=== PATIENT | female | born 1945 | race Caucasian/White ===

== ENCOUNTER 2020-02-18 20:10 | Emergency (ER) | payer MEDICARE, BC ==
--- NOTE | 2020-02-18 20:31 | EDM.PDOC ---
ED HPI GENERAL MEDICAL PROBLEM - General Chief Complaint: Upper Extremity Injury/Pain Stated Complaint: FALL-ARM PAIN Time Seen by Provider: 02/18/20 20:15 Source of Information: Reports: Patient, Family History Limitations: Reports: No Limitations - History of Present Illness INITIAL COMMENTS - FREE TEXT/NARRATIVE: pt states she slipped on ice and fell landing on her right side and on the right side of her back has pain in the mid upper arm, elbow and numbness in the forearm states she has a history of prior unrepaired fracture of the right femur no head injury , no LOC though she hit her head on the ground ( back of the head and right side of back) Onset: Today Onset Date: 02/18/20 Duration: Minutes: (30), Getting Worse Location: Reports: Upper Extremity, Right (tenderness in the mid arm) Quality: Reports: Ache, Dull Severity: Moderate Improves with: Reports: None Worsens with: Reports: Movement Right Upper Arm Pain Score (Numeric/FACES): 8 - Related Data Allergies Allergy/AdvReac Type Severity Reaction Status Date / Time propoxyphene [From Darvon] Allergy Other Verified 02/18/20 20:23 Sulfa (Sulfonamide Allergy Other Verified 02/18/20 20:23 Antibiotics) Home Meds: Home Meds Aspirin [Ecotrin EC] 81 mg PO DAILY 02/18/20 [History] Hydrocodone/Acetaminophen [Hydrocodon-Acetaminophen 5-325] 1 each PO Q12HR PRN #10 tablet 02/18/20 [Rx] Ketorolac [Toradol] 10 mg PO Q6H PRN #20 tab 02/18/20 [Rx] Levothyroxine 75 mcg PO DAILY 02/18/20 [History] Losartan [Cozaar] 100 mg PO DAILY 02/18/20 [History] Review of Systems - Review of Systems Review Of Systems: See Below Constitutional: Reports: No Symptoms Eyes: Reports: No Symptoms Ears: Reports: No Symptoms Nose: Reports: No Symptoms Mouth/Throat: Reports: No Symptoms Respiratory: Reports: No Symptoms Genitourinary: Reports: No Symptoms Musculoskeletal: Reports: Shoulder Pain, Arm Pain, Hand Pain, Muscle Pain, Muscle Stiffness Skin: Reports: No Symptoms Neurological: Reports: No Symptoms ED EXAM, GENERAL - Physical Exam Exam: See Below Exam Limited By: Physical Impairment (pt is in pain) General Appearance: Alert, WD/WN Nose: Normal Inspection Throat/Mouth: Normal Oropharynx Head: Atraumatic, Normocephalic Neck: Supple, Non-Tender Respiratory/Chest: Lungs Clear Cardiovascular: Regular Rate, Rhythm Peripheral Pulses: 2+: Radial (L), Radial (R) Extremities: Arm Pain (right arm pain , mid hsft of humerus , may be fractured), Limited Range of Motion Neurological: Alert, Oriented, CN II-XII Intact, Normal Cognition Psychiatric: Normal Affect Course - Vital Signs Last Recorded V/S: Last Vital Signs Temp 36.6 C 02/18/20 20:27 Pulse 72 02/18/20 20:27 Resp 18 02/18/20 20:27 BP 177/83 H 02/18/20 20:27 Pulse Ox 99 02/18/20 20:27 - Orders/Labs/Meds Orders: Active Orders 24 hr Category Date Time Status Humerus Rt [CR] Stat Exams 02/18/20 20:24 Taken Shoulder Comp Rt [CR] Stat Exams 02/18/20 20:25 Taken Meds: Medications Discontinued Medications Generic Name Dose Route Start Last Admin Trade Name Freq PRN Reason Stop Dose Admin Morphine Sulfate 2 mg 02/18/20 20:29 02/18/20 20:43 Morphine IM 02/18/20 20:30 2 mg ONETIME ONE Administration - Re-Assessments/Exams Free Text/Narrative Re-Assessment/Exam: 02/18/20 21:24 Xray reviewed : pt has transverse fracture of the right humerus with displacement Pt placedin shoulder immobilizer and feels more comfortable has sensation inthe fingers and hand is pink Several attempts made to contact [facility] nsuccesful , also attempts made to contact Ortho in [facility] Orth clinic and not successful pt will call same clinic in am and make appointment to be seen by the medical center orthopedic surgeon that she had seen Departure - Departure Time of Disposition: 22:00 Disposition: Home, Self-Care 01 Condition: Fair Clinical Impression: Fracture, humerus closed, shaft - Discharge Information *PRESCRIPTION DRUG MONITORING PROGRAM REVIEWED*: Not Applicable *COPY OF PRESCRIPTION DRUG MONITORING REPORT IN PATIENT KAYCE: Not Applicable Prescriptions: Hydrocodone/Acetaminophen [Hydrocodon-Acetaminophen 5-325] 1 each PO Q12HR PRN #10 tablet PRN Reason: Pain (Severe 7-10) Ketorolac [Toradol] 10 mg PO Q6H PRN #20 tab PRN Reason: Pain (Moderate 4-6) Instructions: Humerus Fracture Treated With Immobilization, [id number], Intramedullary Nailing of Humeral Shaft Fracture, Care After Referrals: Richy Goldstein MD [Primary Care Provider] - Forms: ED Department Discharge Additional Instructions: 1) Referral to Orthopedic surgeon Call in am [phone] Berger ( Orthopedic surgeon) 2) attempts made to contact cathodic protection technician not successful Pt will call ortho in am to make appointment to be seen Sepsis Event Note (ED) - Focused Exam Vital Signs: Vital Signs Temp Pulse Resp BP Pulse Ox 02/18/20 20:27 36.6 C 72 18 177/83 H 99 - My Orders Last 24 Hours: My Active Orders 02/18/20 20:24 Humerus Rt [CR] Stat 02/18/20 20:25 Shoulder Comp Rt [CR] Stat - Assessment/Plan Last 24 Hours: My Active Orders 02/18/20 20:24 Humerus Rt [CR] Stat 02/18/20 20:25 Shoulder Comp Rt [CR] Stat
[2020-02-18] MEDS: Morphine 2 MG/ML SYRINGE IM ONE (20:43)
--- NOTE | 2020-02-19 10:33 | CR ---
INDICATION: Fall, numbness in fingers. RIGHT SHOULDER: Three views of the right shoulder were obtained 02/18/20 and compared with 12/18/09. 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 An acute fracture or dislocation was not identified. Bone density appeared to be grossly normal. IMPRESSION: 1. Minimal osteoarthritis glenohumeral joint. 2. No acute fracture or dislocation. MTDD
--- NOTE | 2020-02-19 10:37 | CR ---
INDICATION: Fall - numbness in fingers. RIGHT HUMERUS: Frontal and somewhat lateral views of the right humerus were obtained 02/18/20 and revealed a slightly oblique to transverse fracture near the midshaft of the humerus through an area of previous healed fracture site with offset and separation of the fracture fragments noted (11 mm separation of fracture fragments, anterior offset of distal fracture fragment 18 mm, with slight anterior angulation of the distal fracture fragment at the fracture site) No other acute bone or joint abnormality was identified. IMPRESSION: Right humeral shaft fracture through an old fracture site that has healed with deformity. BRIDGET
== END 2020-02-18 22:10 | disposition home or self-care (01) ==
LOC: FB.ED 20:10
DX: S42.301A Unspecified fracture of shaft of humerus, right arm, initial encounter for closed fracture (principal); Z79.82 Long term (current) use of aspirin; Z79.899 Other long term (current) drug therapy; Z88.2 Allergy status to sulfonamides; W00.0XXA Fall on same level due to ice and snow, initial encounter
CPT/HCPCS: 73030-RT; 73060-RT; 96372; 99284-25; J2270

== ENCOUNTER 2020-04-28 09:49 | Inpatient (IN) | payer MEDICARE, BC ==
[2020-04-28] MEDS ORDERED: [UNRECOGNIZED DRUG - OTHER] PO SCH (15:45)
[2020-04-28] MEDS ORDERED: MULTIVITAMIN PO SCH (15:45)
[2020-04-28] MEDS ORDERED: Acetaminophen 500 MG Tab PO ONE (16:00)
--- NOTE | 2020-04-28 19:13 | PCM.HP.2 ---
H&P History of Present Illness - General Date of Service: 04/28/20 Admit Problem/Dx: Admission Diagnosis/Problem Admission Diagnosis/Problem Rehabilitation therapy Source of Information: Patient, Old Records History Limitations: Reports: No Limitations - History of Present Illness Initial Comments - Free Text/Narative: Patient suffered a fall while shoveling snow at the end of January 2020 and fractured her right humerus. She had poor healing and subsequently underwent iliac graft. Patient is transferred here to swing bed for physical and rehabilitative therapy. Onset of Symptoms: Reports: Gradual Duration of Symptoms: Reports: Week(s): Location: Reports: Upper Extremity, Right, Lower Extremity, Right Quality: Reports: Ache Severity: Mild Improves with: Reports: Medication Worsens with: Reports: Movement Associated Symptoms: Reports: No Other Symptoms Right Arm Pain Score (Numeric/FACES): 1 - Related Data Allergies/Adverse Reactions: Allergies Allergy/AdvReac Type Severity Reaction Status Date / Time propoxyphene [From Darvon] Allergy Other Verified 02/18/20 20:23 Sulfa (Sulfonamide Allergy Other Verified 02/18/20 20:23 Antibiotics) Home Medications: Home Meds Aspirin [Ecotrin EC] 81 mg PO DAILY 02/18/20 [History] Levothyroxine 75 mcg PO DAILY 02/18/20 [History] Losartan [Cozaar] 100 mg PO DAILY 02/18/20 [History] Acetaminophen [Tylenol Extra Strength] 1,000 mg PO Q8H 04/28/20 [History] Enoxaparin [Lovenox] 40 mg SUBCUT DAILY 04/28/20 [History] Fexofenadine [Page] 180 mg PO DAILY PRN 04/28/20 [History] Multivitamin [Daily [place]] 1 tab PO WEEKLY 04/28/20 [History] Mv-Mn/Lutein/Zeax/Bilber/Hb277 [Macular Health Formula Capsule] 1 cap PO ASDIRECTED 04/28/20 [History] Sennosides/Docusate Sodium [Senna-S] 1 tab PO BID PRN 04/28/20 [History] oxyCODONE 5 mg PO Q4H PRN 04/28/20 [History] Past Medical History Cardiovascular History: Reports: Hypertension Musculoskeletal History: Reports: Fracture Other Musculoskeletal History: right humerus fracture; FELL DOWN 5 YRS AGO Endocrine/Metabolic History: Reports: Hypothyroidism Social & Family History - Family History Family Medical History: No Pertinent Family History - Tobacco Use Tobacco Use Status *Q: Never Tobacco User Second Hand Smoke Exposure: No - Caffeine Use Caffeine Use: Reports: Coffee - Recreational Drug Use Recreational Drug Use: No H&P Review of Systems - Review of Systems: Review Of Systems: See Below General: Reports: Weakness HEENT: Reports: No Symptoms Pulmonary: Reports: No Symptoms Cardiovascular: Reports: No Symptoms Gastrointestinal: Reports: No Symptoms Genitourinary: Reports: No Symptoms Musculoskeletal: Reports: Arm Pain, Leg Pain Skin: Reports: Wound Psychiatric: Reports: No Symptoms Neurological: Reports: No Symptoms Hematologic/Lymphatic: Reports: No Symptoms Immunologic: Reports: No Symptoms Exam - Exam Exam: See Below - Exam Quality Assessment: DVT Prophylaxis, Skin Breakdown General: Alert, Oriented, Cooperative HEENT: EOMI, Mucosa Moist & [place] Lungs: Clear to Auscultation Cardiovascular: Regular Rate, Regular Rhythm, Systolic Murmur GI/Abdominal Exam: Normal Bowel Sounds, Soft, Non-Tender Back Exam: Normal Inspection. No: CVA Tenderness (R), CVA Tenderness (L) Extremities: Pedal Edema Peripheral Pulses: 2+: Radial (L), Radial (R), Dorsalis Pedis (L), Dorsalis Pedis (R) Skin: Warm, Dry Neurological: Normal Speech Neuro Extensive - Mental Status: Alert, Oriented x3, Normal Mood/Affect, Normal Cognition, Memory Intact Psychiatric: Alert, Normal Affect, Normal Mood Sepsis Event Note - Evaluation Sepsis Screening Result: No Definite Risk - Problem List (1) Fracture, humerus closed, shaft SNOMED Code(s): 63430714 ICD Code: S42.309A - UNSP FRACTURE OF SHAFT OF HUMERUS, UNSP ARM, INIT Status: Acute Current Visit: No Problem List Initiated/Reviewed/Updated: Yes Orders Last 24hrs: Active Orders 24 hr Category Date Time Status Admission Status [Patient Status] [ADT] Routine ADT 04/28/20 15:37 Active Acetaminophen [TylenoL] Med 04/29/20 07:00 Ordered 650 mg PO Q4H Aspirin [Halfprin] Med 04/29/20 09:00 Active 81 mg PO DAILY Docusate Sodium/Sennosides [Senna Plus] Med 04/28/20 15:34 Active 1 tab PO BID PRN Enoxaparin [Lovenox] Med 04/29/20 09:00 Active 40 mg SUBCUT DAILY Fexofenadine [Page] Med 04/28/20 16:00 Active 180 mg PO DAILY PRN Levothyroxine Med 04/29/20 06:00 Active 75 mcg PO DAILY@0600 Losartan [Cozaar] Med 04/29/20 09:00 Active 100 mg PO DAILY Multivitamin [Daily [place]] Med 04/28/20 15:45 Pending 1 tab PO WEEKLY Mv-Mn/Lutein/Zeax/Bilber/Hb277 [Macular Health Formula Med 04/28/20 15:45 Pending Capsule] 1 cap PO ASDIRECTED Medication Orders Acetaminophen (Tylenol) 650 mg PO Q4H JAMARI Aspirin (Halfprin) 81 mg PO DAILY JAMARI Enoxaparin Sodium (Lovenox) 40 mg SUBCUT DAILY JAMARI Fexofenadine HCl (Page) 180 mg PO DAILY PRN PRN Reason: Allergies Levothyroxine Sodium (Levothyroxine) 75 mcg PO DAILY@0600 JAMARI Losartan Potassium (Cozaar) 100 mg PO DAILY JAMARI Non-Formulary Medication (Multivitamin [Daily [place]]) 1 tab PO WEEKLY JAMARI Non-Formulary Medication (Mv-Mn/Lutein/Zeax/Bilber/Hb277 [Macular Health Formula Capsule]) 1 cap PO ASDIRECTED JAMARI Senna/Docusate Sodium (Senna Plus) 1 tab PO BID PRN PRN Reason: Constipation Assessment/Plan Comment:: 74-year-old lady admitted to swing bed for OT/PT rehabilitation after bone graft to the right humerus to aid fracture healing. Treatment as above. Recommendations based on patient status and recommendations from OT/PT.
[2020-04-28] MEDS ORDERED: Ondansetron 4 MG Tab.DIS PO PRN (19:16)
[2020-04-28] MEDS ORDERED: Acetaminophen 500 MG Tab PO SCH (22:00)
[2020-04-28] MEDS: Acetaminophen 325 MG Tab PO SCH (23:56)
[2020-04-29] MEDS: Acetaminophen 325 MG Tab PO SCH ×5 (04:08→20:08)
[2020-04-29] MEDS: Levothyroxine 75 MCG Tab PO SCH (06:27)
[2020-04-29] MEDS ORDERED: Acetaminophen 325 MG Tab PO SCH (07:00)
[2020-04-29] MEDS: Enoxaparin 40 MG/0.4 ML Syringe SUBCUT SCH (08:52)
[2020-04-29] MEDS: Losartan 100 MG Tab PO SCH (08:52)
[2020-04-29] MEDS: Aspirin 81 MG Tab.EC PO SCH (08:52)
--- NOTE | 2020-04-29 10:40 | PCM.PN ---
- General Info Date of Service: 04/29/20 Admission Dx/Problem (Free Text): Admission Diagnosis/Problem Admission Diagnosis/Problem Rehabilitation therapy Subjective Update: I was called to the patient's room at approximately 1015 because the patient was experiencing chest pain. She described the chest pain as substernal at the inferior sternal border, radiating laterally in both directions. She did not have shortness of breath, diaphoresis, dizziness. She states that she has had this pain a couple of times since her surgery and is concerned. Functional Status: Reports: Pain Controlled, Tolerating Diet, Ambulating, Urinating - Review of Systems General: Reports: Weakness HEENT: Reports: No Symptoms Pulmonary: Reports: No Symptoms Cardiovascular: Reports: Chest Pain, Edema. Denies: Palpitations Gastrointestinal: Reports: Other (GERD) Genitourinary: Reports: No Symptoms Musculoskeletal: Reports: Arm Pain, Leg Pain Skin: Reports: No Symptoms Neurological: Reports: No Symptoms Psychiatric: Reports: No Symptoms - Patient Data Vitals - Most Recent: Last Vital Signs Temp Pulse Resp BP 129/63 04/29/20 08:52 Pulse Ox Med Orders - Current: Current Medications Acetaminophen (Acetaminophen 325 Mg Tab) 650 mg PO Q4H [facility] Last Admin: 04/29/20 10:17 Dose: 650 mg Documented by: Aspirin (Halfprin) 81 mg PO DAILY [facility] Last Admin: 04/29/20 08:52 Dose: 81 mg Documented by: Enoxaparin Sodium (Enoxaparin 40 Mg/0.4 Ml Syringe) 40 mg SUBCUT DAILY [facility] Stop: 05/08/20 09:01 Last Admin: 04/29/20 08:52 Dose: 40 mg Documented by: Fexofenadine HCl (Page) 180 mg PO DAILY PRN PRN Reason: Allergies Levothyroxine Sodium (Levothyroxine 75 Mcg Tab) 75 mcg PO DAILY@0600 [facility] Last Admin: 04/29/20 06:27 Dose: 75 mcg Documented by: Losartan Potassium (Cozaar) 100 mg PO DAILY [facility] Last Admin: 04/29/20 08:52 Dose: 100 mg Documented by: Ondansetron HCl (Zofran Odt) 4 mg PO Q4H PRN PRN Reason: Nausea/Vomiting Senna/Docusate Sodium (Senna Plus) 1 tab PO BID PRN PRN Reason: Constipation Discontinued Medications Acetaminophen (Tylenol Extra Strength) 1,000 mg PO Q8H JAMARI Acetaminophen (Tylenol Extra Strength) 1,000 mg PO ONETIME ONE Stop: 04/28/20 16:01 Last Admin: 04/28/20 16:26 Dose: 1,000 mg Documented by: Acetaminophen (Tylenol) 650 mg PO Q4H JAMARI Fexofenadine HCl (Page) 180 mg PO DAILY PRN PRN Reason: Allergies Non-Formulary Medication (Multivitamin [Daily [place]]) 1 tab PO WEEKLY JAMARI Non-Formulary Medication (Mv-Mn/Lutein/Zeax/Bilber/Hb277 [Macular Health Formula Capsule]) 1 cap PO ASDIRECTED JAMARI - Exam Quality Assessment: DVT Prophylaxis General: Alert, Oriented, Cooperative, No Acute Distress Lungs: Clear to Auscultation, Normal Respiratory Effort Cardiovascular: Regular Rate, Regular Rhythm, Murmurs, Other (Chest pain not reproduced with deep inspiration but reproduced with firm palpation over the distal sternum). No: Gallops, Rubs Extremities: Pedal Edema (Mild to 1+ edema right lower extremity status post right iliac bone graft) Peripheral Pulses: 2+: Radial (L), Radial (R) Skin: Warm, Dry Neurological: No New Focal Deficit Psy/Mental Status: Alert, Normal Affect, Normal Mood Sepsis Event Note - Evaluation Sepsis Screening Result: No Definite Risk - Focused Exam Vital Signs: Vital Signs BP 04/29/20 08:52 129/63 - Problem List & Annotations (1) Fracture, humerus closed, shaft SNOMED Code(s): 22873781 Code(s): S42.309A - UNSP FRACTURE OF SHAFT OF HUMERUS, UNSP ARM, INIT Status: Acute Current Visit: No - Problem List Review Problem List Initiated/Reviewed/Updated: Yes - My Orders Last 24 Hours: My Active Orders 04/28/20 15:34 Docusate Sodium/Sennosides [Senna Plus] 1 tab PO BID PRN 04/28/20 15:45 Admission Status [Patient Status] [ADT] Routine 04/28/20 16:00 Fexofenadine [Page] 180 mg PO DAILY PRN 04/28/20 19:13 OT Evaluation and Treatment [CONS] Routine PT Evaluation and Treatment [CONS] Routine 04/28/20 19:14 Dietary Supplements [RC] PRN 04/28/20 19:16 Ondansetron [Zofran ODT] 4 mg PO Q4H PRN 04/28/20 20:13 Code Status [Resuscitation Status] Routine 04/29/20 00:00 Acetaminophen [TylenoL] 650 mg PO Q4H 04/29/20 06:00 Levothyroxine 75 mcg PO DAILY@0600 04/29/20 09:00 Aspirin [Halfprin] 81 mg PO DAILY Enoxaparin [Lovenox] 40 mg SUBCUT DAILY Losartan [Cozaar] 100 mg PO DAILY 04/29/20 10:31 EKG Documentation Completion [RC] ASDIRECTED EKG 12 Lead [EK] Routine - Plan Plan:: 74-year-old lady admitted to swing bed for OT/PT rehabilitation after bone graft to the right humerus to aid fracture healing. Treatment as above. Recommendations based on patient status and recommendations from OT/PT. Patient states that her chest pain has subsided significantly, lasted approximately 10 to 15 minutes. We will get an EKG now. Any further recommendations based on patient's symptoms and EKG result.
[2020-04-30] MEDS: Acetaminophen 325 MG Tab PO SCH ×6 (00:48→20:22)
[2020-04-30] MEDS: Levothyroxine 75 MCG Tab PO SCH (05:00)
[2020-04-30] MEDS: Aspirin 81 MG Tab.EC PO SCH (08:21)
[2020-04-30] MEDS: Losartan 100 MG Tab PO SCH (08:21)
[2020-04-30] MEDS: Enoxaparin 40 MG/0.4 ML Syringe SUBCUT SCH (08:21)
[2020-05-01] MEDS: Acetaminophen 325 MG Tab PO SCH ×6 (00:37→20:38)
[2020-05-01] MEDS: Levothyroxine 75 MCG Tab PO SCH (04:59)
[2020-05-01] MEDS: Losartan 100 MG Tab PO SCH (09:38)
[2020-05-01] MEDS: Aspirin 81 MG Tab.EC PO SCH (09:39)
[2020-05-01] MEDS: Enoxaparin 40 MG/0.4 ML Syringe SUBCUT SCH (09:39)
[2020-05-02] MEDS: Acetaminophen 325 MG Tab PO SCH ×3 (00:40→09:29)
[2020-05-02] MEDS: Levothyroxine 75 MCG Tab PO SCH (04:59)
[2020-05-02] MEDS: Losartan 100 MG Tab PO SCH (09:29)
[2020-05-02] MEDS: Aspirin 81 MG Tab.EC PO SCH (09:29)
[2020-05-02] MEDS: Enoxaparin 40 MG/0.4 ML Syringe SUBCUT SCH (11:08)
--- NOTE | 2020-05-03 13:15 | PCM.DCSUM1 ---
Discharge Summary - Hospital Course HPI Initial Comments: Patient suffered a fall while shoveling snow at the end of January 2020 and fractured her right humerus. She had poor healing and subsequently underwent iliac graft. Patient is transferred here to swing bed for physical and rehabilitative therapy. Diagnosis: Stroke: No - Discharge Data Discharge Date: 05/02/20 Discharge Disposition: Home, Self-Care 01 Condition: Good - Referral to Home Health Primary Care Physician: Richy Goldstein MD - Patient Summary/Data Consults: Consultations 04/28/20 19:13 OT Evaluation and Treatment [CONS] Routine Please Evaluate and Treat. OT Reason for Consult: ADL's This query below is only for informational purposes and is not editable. Admission Diagnosis/Problem: Rehabilitation therapy PT Evaluation and Treatment [CONS] Routine Please Evaluate and Treat. PT Reason for Consult: Strengthening This query below is only for informational purposes and is not editable. Admission Diagnosis/Problem: Rehabilitation therapy Hospital Course: Lydia was admitted for rehab services after right humeral ORIF with iliac crest bone graft on 04/24/20. She had episode of chest pain on day after admission, EKG did not show ischemia. She has not any further chest pain, suspected GERD related. Her pain has been controlled with schedule Tylenol. Having good bowel movements. She had 4 doses of Lovenox during hospital course, will need 6 more doses as outpatient, will restart her aspirin and Excedrin Extra Strength once Lovenox is completed. Follow up in 2 weeks with ortho and again at 6 weeks. Mepilex dressing changed 05/02, every 7 days until seen by ortho. Her niece came and did Lovenox education prior to discharge. - Patient Instructions Diet: Regular Diet as Tolerated Activity: Non Weight Bearing (Right Arm) Activity, Other: Weight bearing as tolerated on right leg Showering/Bathing: May Shower Notify Provider of: Fever, Increased Pain, Swelling and Redness Other/Special Instructions: Follow up with Orville Contreras PA-C on 05/13/20 at 10am. Follow up with Dr Berger on 06/10/20 at 1020am. Dressing change every 7 days on Tuesday. You may resume your aspirin and Excedrin Extra Strength once you are finished with the Lovenox injections. - Discharge Plan *PRESCRIPTION DRUG MONITORING PROGRAM REVIEWED*: Not Applicable *COPY OF PRESCRIPTION DRUG MONITORING REPORT IN PATIENT KAYCE: Not Applicable Prescriptions/Med Rec: Enoxaparin [Lovenox] 40 mg SUBCUT DAILY 6 Days #6 syringe Home Medications: Home Meds Levothyroxine 75 mcg PO DAILY 02/18/20 [History] Losartan [Cozaar] 100 mg PO DAILY 02/18/20 [History] Fexofenadine [Page] 180 mg PO DAILY PRN 04/28/20 [History] Multivitamin [Daily [place]] 1 tab PO WEEKLY 04/28/20 [History] Mv-Mn/Lutein/Zeax/Bilber/Hb277 [Macular Health Formula Capsule] 1 cap PO ASDIRECTED 04/28/20 [History] Sennosides/Docusate Sodium [Senna-S] 1 tab PO BID PRN 04/28/20 [History] Acetaminophen [Tylenol] 650 mg PO Q4H 7 Days tablet 05/02/20 [Rx] Aspirin [Ecotrin EC] 81 mg PO DAILY #0 05/02/20 [Rx] Enoxaparin [Lovenox] 40 mg SUBCUT DAILY 6 Days #6 syringe 05/02/20 [Rx] Patient Handouts: Fall Prevention in Hospitals, Adult, Venous Thromboembolism Prevention - Discharge Summary/Plan Comment DC Time >30 min.: No - General Info Date of Service: 05/02/20 Subjective Update: Lydia is feeling well this morning, no chest pain or shortness of breath. Having regular bowel movements. Her niece is coming today to learn how to give Lovenox at home. Also has nurse friend that will help with her dressing changes. Declined Home Health services. - Patient Data Vitals - Most Recent: Last Vital Signs Temp 97.6 F 05/02/20 07:45 Pulse 64 05/02/20 07:45 Resp 18 05/02/20 07:45 BP 122/66 05/02/20 09:29 Pulse Ox 96 05/02/20 07:45 Weight - Most Recent: 175 lb 4.8 oz Med Orders - Current: Current Medications Discontinued Medications Acetaminophen (Acetaminophen 500 Mg Tab) 1,000 mg PO Q8H [facility] Acetaminophen (Acetaminophen 500 Mg Tab) 1,000 mg PO ONETIME ONE Stop: 04/28/20 16:01 Last Admin: 04/28/20 16:26 Dose: 1,000 mg Documented by: Acetaminophen (Acetaminophen 325 Mg Tab) 650 mg PO Q4H JAMARI Acetaminophen (Acetaminophen 325 Mg Tab) 650 mg PO Q4H [facility] Last Admin: 05/02/20 09:29 Dose: 650 mg Documented by: Aspirin (Aspirin 81 Mg Tab.Ec) 81 mg PO DAILY [facility] Last Admin: 05/02/20 09:29 Dose: 81 mg Documented by: Enoxaparin Sodium (Enoxaparin 40 Mg/0.4 Ml Syringe) 40 mg SUBCUT DAILY [facility] Stop: 05/08/20 09:01 Last Admin: 05/02/20 11:08 Dose: 40 mg Documented by: Fexofenadine HCl (Fexofenadine 60 Mg Tab) 180 mg PO DAILY PRN PRN Reason: Allergies Fexofenadine HCl (Fexofenadine 180 Mg Tab) 180 mg PO DAILY PRN PRN Reason: Allergies Levothyroxine Sodium (Levothyroxine 75 Mcg Tab) 75 mcg PO DAILY@0600 [facility] Last Admin: 05/02/20 04:59 Dose: 75 mcg Documented by: Losartan Potassium (Losartan 100 Mg Tab) 100 mg PO DAILY [facility] Last Admin: 05/02/20 09:29 Dose: 100 mg Documented by: Non-Formulary Medication (Multivitamin [Daily [place]]) 1 tab PO WEEKLY [facility] Non-Formulary Medication (Mv-Mn/Lutein/Zeax/Bilber/Hb277 [Macular Health Formula Capsule]) 1 cap PO ASDIRECTED [facility] Ondansetron HCl (Ondansetron 4 Mg Tab.Dis) 4 mg PO Q4H PRN PRN Reason: Nausea/Vomiting Senna/Docusate Sodium (Docusate Sodium/Sennosides 50-8.6 Mg Tab) 1 tab PO BID PRN PRN Reason: Constipation - Exam General: Reports: Alert, Oriented, Cooperative, No Acute Distress Lungs: Reports: Clear to Auscultation, Normal Respiratory Effort Cardiovascular: Reports: Regular Rate, Regular Rhythm GI/Abdominal Exam: Normal Bowel Sounds, Soft, Non-Tender, No Distention Extremities: No Pedal Edema, Other (right arm in immobilizer)
== END 2020-05-02 11:30 | disposition home or self-care (01) | DRG 561 ==
LOC: FB.MS 15:09
PROVIDERS: ADMIT Student in an Organized Health Care Education/Training Program; ATTEND Family Medicine
DX: S42.301D Unspecified fracture of shaft of humerus, right arm, subsequent encounter for fracture with routine healing (principal); K21.9 Gastro-esophageal reflux disease without esophagitis; I10 Essential (primary) hypertension; E03.9 Hypothyroidism, unspecified; Z79.82 Long term (current) use of aspirin; Z79.899 Other long term (current) drug therapy; Z88.2 Allergy status to sulfonamides; Z88.5 Allergy status to narcotic agent
CPT/HCPCS: 93005; 97110-GO; 97116-GP; 97161-GP; 97165-GO; 97530-GP; 97535-GO; A9270-GY; J1650

== ENCOUNTER 2023-12-30 06:18 | Day surgery (SDC) | payer MEDICARE, BC ==
[~2023-12-30 06:18] MED LIST: Sodium Chloride 0.9% 10 ML Syringe FLUSH PRN
[2023-12-30] MEDS ORDERED: Propofol 200 MG/20 ML SDV IV ONE (06:19)
[2023-12-30] MEDS ORDERED: Lidocaine 2% 5 ML SDV INFILT ONE (06:19)
[2023-12-30] MEDS: Lactated Ringers 1,000 ML IV SCH (07:25)
[2023-12-30] MEDS: Simethicone Drops 40 MG/0.6 ML 30 ML Bottle ONE (07:43)
== END 2023-12-30 09:40 | disposition home or self-care (01) ==
LOC: FB.SDS 06:18
PROVIDERS: ATTEND Surgery
DX: Z12.11 Encounter for screening for malignant neoplasm of colon (principal); D12.6 Benign neoplasm of colon, unspecified; Z86.0100 Personal history of colon polyps, unspecified; I10 Essential (primary) hypertension; E78.5 Hyperlipidemia, unspecified; E03.9 Hypothyroidism, unspecified; K21.9 Gastro-esophageal reflux disease without esophagitis; Z91.040 Latex allergy status; Z88.2 Allergy status to sulfonamides; Z79.890 Hormone replacement therapy; Z79.899 Other long term (current) drug therapy
CPT/HCPCS: 00811; 45385; 88305; 99100; A9270; J2704; J7120